=== PATIENT | male | born 1955 | race Caucasian/White ===

== ENCOUNTER 2021-06-20 11:49 | Emergency (ER) | payer OTHER ==
[~2021-06-20] VITALS: Ht 175.3 cm; Wt 80.7 kg
[2021-06-20 11:51] VITALS: BP 153/92
[2021-06-20] MEDS ORDERED: NAPR-1180 PO (12:24)
[2021-06-20] MEDS ORDERED: KETOROLAC 30MG VIAL (30MG/ML) IM ONE (12:30)
== END 2021-06-20 12:38 | disposition home or self-care (01) ==
LOC: EDH 11:49
DX: S90.31XA Contusion of right foot, initial encounter (principal); I10 Essential (primary) hypertension; Z90.49 Acquired absence of other specified parts of digestive tract; Z79.899 Other long term (current) drug therapy; W31.89XA Contact with other specified machinery, initial encounter; Y93.89 Activity, other specified; Y92.89 Other specified places as the place of occurrence of the external cause; Y99.8 Other external cause status
CPT/HCPCS: 73630; 96372; 99283; J1885